=== PATIENT | male | born 1990 | race Caucasian/White ===

== ENCOUNTER 2017-11-05 12:04 | Emergency (ER) | payer SELFPAY ==
[~2017-11-05] VITALS: Ht 177.8 cm; Wt 86.2 kg
[2017-11-05] MEDS ORDERED: HALOPERIDOL5 MG PO (12:12)
== END 2017-11-05 12:17 | disposition home or self-care (01) ==
LOC: ED 12:04
DX: Z76.0 Encounter for issue of repeat prescription (principal)

== ENCOUNTER 2017-11-27 21:45 | Emergency (ER) | payer BC, MEDICARE, OTHER ==
[~2017-11-27] VITALS: Ht 177.8 cm; Wt 86.2 kg
[~2017-11-27 21:45] MED LIST: HALOPERIDOL5 MG PO
[2017-11-27] MEDS ORDERED: ACYCLOVIR400 MG PO (21:57)
[2017-11-27] MEDS ORDERED: LIDOCAINE-HC 3-07 G2 (21:57)
== END 2017-11-27 22:07 | disposition home or self-care (01) ==
LOC: ED 21:45
DX: S00.03XA Contusion of scalp, initial encounter (principal); W50.0XXA Accidental hit or strike by another person, initial encounter; Z79.899 Other long term (current) drug therapy
CPT/HCPCS: 99282